=== PATIENT | male | born 1955 | race Caucasian/White ===

== ENCOUNTER 2016-06-20 20:33 | Emergency (ER) | payer BC ==
[~2016-06-20] VITALS: Ht 175.3 cm; Wt 81.6 kg
[~2016-06-20 20:33] MED LIST: ALBU8.5H6; ASPI-482 PO; FAMO10TA5; NEBI5TAB2
[2016-06-20] MEDS ORDERED: CLONIDINE HCL 0.1 MG TABLET PO ONE (21:30)
--- NOTE | 2016-06-20 21:33 | ED.ADGEN ---
Past History Past Medical History: Hypertension Past Surgical History: Cholecystectomy Smoking: Cigarettes, Less than 1pk/day Alcohol Use: None Drug Use: None Adult General HPI HPI Patient is a 61-year-old male presents emergency department complaining of a brief episode of sharp chest pain. Patient denies any cardiac history. This pain occurred about an hour ago. It lasted briefly has since resolved. He does have a history of chest discomfort or fluttering" when his blood pressure is high. Patient reports he has not always compliant with his blood pressure medicine although he reports taking 3 or 4 hours ago this evening. He does continue to smoke. He denies any associated symptoms such as diaphoresis, dyspnea, nausea, vomiting. Review of Systems Review of Systems Constitutional: Denies fever or chills [] Eyes: Denies change in visual acuity, redness, or eye pain [] HENT: Denies nasal congestion or sore throat [] Respiratory: Denies cough or shortness of breath [] Cardiovascular: No additional information not addressed in HPI [] GI: Denies abdominal pain, nausea, vomiting, bloody stools or diarrhea [] : Denies dysuria or hematuria [] Musculoskeletal: Denies back pain or joint pain [] Integument: Denies rash or skin lesions [] Neurologic: Denies headache, focal weakness or sensory changes [] Endocrine: Denies polyuria or polydipsia [] Current Medications Current Medications Current Medications Medications (Trade) Dose Ordered Sig/[facility] Start Time Stop Time Status Last Admin Dose Admin Clonidine HCl (Catapres) 0.2 mg 1X ONCE 06/20/16 21:30 06/20/16 21:31 DC 06/20/16 21:30 0.2 MG Allergies Allergies Allergies Coded Allergies Type Severity Reaction Last Updated Verified No Known Drug Allergies 04/12/13 No Physical Exam Physical Exam Constitutional: Well developed, well nourished, no acute distress, non-toxic appearance. [] HENT: Normocephalic, atraumatic, bilateral external ears normal, oropharynx moist, no oral exudates, nose normal. [] Eyes: PERRLA, EOMI, conjunctiva normal, no discharge. [] Neck: Normal range of motion, no tenderness, supple, no stridor. [] Cardiovascular:Heart rate regular rhythm, no murmur [] Lungs & Thorax: Bilateral breath sounds clear to auscultation [] Abdomen: Bowel sounds normal, soft, no tenderness, no masses, no pulsatile masses. [] Skin: Warm, dry, no erythema, no rash. [] Back: No tenderness, no CVA tenderness. [] Extremities: No tenderness, no cyanosis, no clubbing, ROM intact, no edema. [] Neurologic: Alert and oriented X 3, normal motor function, normal sensory function, no focal deficits noted. [] Psychologic: Affect normal, judgement normal, mood normal. [] Current Patient Data Vital Signs Vital Signs Date Time Temp Pulse Resp B/P Pulse Ox O2 Delivery O2 Flow Rate FiO2 06/20/16 21:30 78 210/102 06/20/16 20:40 98.6 18 97 Room Air Lab Results Laboratory Tests Test 06/20/16 21:39 White Blood Count 11.2x10^3/uL (4.0-11.0) H Red Blood Count 4.58x10^6/uL (4.30-5.70) Hemoglobin 14.2g/dL (13.0-17.5) Hematocrit 41.7% (39.0-53.0) Mean Corpuscular Volume 91fL (79-100) Mean Corpuscular Hemoglobin 31pg (25-35) Mean Corpuscular Hemoglobin Concent 34g/dL (31-37) Red Cell Distribution Width 14.2% (11.5-14.5) Platelet Count 265x10^3/uL (140-400) Neutrophils (%) (Auto) 52% (31-73) Lymphocytes (%) (Auto) 34% (24-48) Monocytes (%) (Auto) 9% (0-9) Eosinophils (%) (Auto) 4% (0-3) H Basophils (%) (Auto) 1% (0-3) Neutrophils # (Auto) 5.9x10^3uL (1.8-7.7) Lymphocytes # (Auto) 3.8x10^3/uL (1.0-4.8) Monocytes # (Auto) 1.0x10^3/uL (0.0-1.1) Eosinophils # (Auto) 0.4x10^3/uL (0.0-0.7) Basophils # (Auto) 0.1x10^3/uL (0.0-0.2) Prothrombin Time 10.3SEC (9.4-11.4) Prothrombin Time INR 1.0 (0.9-1.1) PTT 25SEC (23-33) Magnesium Level 1.8mg/dL (1.8-2.4) EKG EKG EKG interpreted by me, normal sinus rhythm, 60 bpm, no ST segment elevations normal axis. [] Radiology/Procedures Radiology/Procedures Chest x-ray interpreted by me, no acute cardiopulmonary process. [] Course & Med Decision Making Course & Med Decision Making Pertinent Labs and Imaging studies reviewed. (See chart for details) Patient's blood pressure has gone down nicely. His chest discomfort is also subsided. At this point he is ready for discharge home. He will call his doctor in the morning and return emergency Department sooner if he develops any new or worsening symptoms. [] Final Impression Final Impression Chest pain Hypertension [] Problems: Dragon Disclaimer Dragon Disclaimer This electronic medical record was generated, in whole or in part, using a voice recognition dictation system. KADEEM ESTRADA MD Jun 20, 2016 21:33
[2016-06-20 21:49] LABS: BASO # 0.1 x10^3/uL (0.0-0.2); BASO % 1 % (0-3); EOS # 0.4 x10^3/uL (0.0-0.7); EOS % 4 % (0-3); HEMATOCRIT 41.7 % (39.0-53.0); HEMOGLOBIN 14.2 g/dL (13.0-17.5); LYMPH # 3.8 x10^3/uL (1.0-4.8); LYMPH % 34 % (24-48); MEAN CORPUSCULAR HEMOGLOBIN 31 pg (25-35); MEAN CORPUSCULAR HGB CONC 34 g/dL (31-37); MEAN CORPUSCULAR VOLUME 91 fL (79-100); MONO % 9 % (0-9); NEUT # 5.9 x10^3uL (1.8-7.7); NEUT % 52 % (31-73); PLATELET COUNT 265 x10^3/uL (140-400); RED BLOOD COUNT 4.58 x10^6/uL (4.30-5.70); RED CELL DISTRIBUTION WIDTH 14.2 % (11.5-14.5); WHITE BLOOD COUNT 11.2 x10^3/uL (4.0-11.0)
[2016-06-20 22:31] VITALS: BP 174/94
[2016-06-20 22:54] LABS: HEMOGLOBIN ISTAT 16.3 gm/dL; POTASSIUM ISTAT 3.3 mmol/L (3.5-5.0)
--- NOTE | 2016-06-20 23:06 | EKG ---
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
--- NOTE | 2016-06-21 08:27 | RAD ---
Portable chest, 06/20/2016: History: Chest pain Comparison is made to a study from 08/06/2015. The heart size and pulmonary vascularity are normal. There is minimal linear atelectasis in the left base. The lungs are otherwise clear. There is no evidence of pleural fluid. IMPRESSION: Minimal left basilar atelectasis.
== END 2016-06-20 22:34 | disposition home or self-care (01) ==
LOC: ER 20:36
DX: R07.9 Chest pain, unspecified (principal); I10 Essential (primary) hypertension; F17.210 Nicotine dependence, cigarettes, uncomplicated
CPT/HCPCS: 36415; 71010; 80047; 83735; 84484; 85027; 85610; 85730; 93005; 99285-25

== ENCOUNTER → 2016-09-27 | Outpatient (CLI) | payer BC ==
--- NOTE | 2016-09-27 11:05 | RAD ---
Indication: Pain between the scapula. Time of exam 10:57 AM AP and lateral views of the thoracic spine were obtained. The vertebral body heights are maintained. No acute compression fracture is detected. The pedicles and paraspinous line are intact. Impression: No acute bony abnormality is detected.
== END | disposition home or self-care (01) ==
LOC: DXRADRC 10:41
PROVIDERS: ATTEND Physician Assistant
DX: M54.6 Pain in thoracic spine (principal)
CPT/HCPCS: 72072

== ENCOUNTER 2016-11-26 12:14 | Emergency (ER) | payer BC ==
[~2016-11-26] VITALS: Ht 175.3 cm; Wt 81.6 kg
[2016-11-26] MEDS ORDERED: fentaNYL PF 100 MCG/2 ML VIAL IV PRN (12:30)
[2016-11-26] MEDS ORDERED: NITROGLYCERIN PREMIX 250 ML IV ONE (12:30)
[2016-11-26 12:50] LABS: BASO # 0.1 x10^3/uL (0.0-0.2); BASO % 1 % (0-3); EOS # 0.4 x10^3/uL (0.0-0.7); EOS % 4 % (0-3); HEMATOCRIT 42.7 % (39.0-53.0); HEMOGLOBIN 14.7 g/dL (13.0-17.5); LYMPH % 32 % (24-48); MEAN CORPUSCULAR HEMOGLOBIN 32 pg (25-35); MEAN CORPUSCULAR HGB CONC 34 g/dL (31-37); MEAN CORPUSCULAR VOLUME 93 fL (79-100); MONO % 11 % (0-9); NEUT % 52 % (31-73); PLATELET COUNT 277 x10^3/uL (140-400); RED BLOOD COUNT 4.59 x10^6/uL (4.30-5.70); RED CELL DISTRIBUTION WIDTH 13.6 % (11.5-14.5); WHITE BLOOD COUNT 9.6 x10^3/uL (4.0-11.0)
[2016-11-26 12:50] LABS: HEMOGLOBIN ISTAT 13.9 gm/dL; POTASSIUM ISTAT 4.4 mmol/L (3.5-5.0)
[2016-11-26 13:14] LABS: ALBUMIN 3.7 g/dL (3.4-5.0); TOTAL BILIRUBIN 0.5 mg/dL (0.2-1.0); TOTAL PROTEIN 7.2 g/dL (6.4-8.2)
[2016-11-26] MEDS ORDERED: NITROGLYCERIN SUBLINGUAL 0.4 MG BOTTLE OF 25. SL ONE (13:15)
[2016-11-26] MEDS ORDERED: ASPIRIN 81 MG TAB.CHEW PO ONE (13:15)
[2016-11-26 13:23] LABS: DIRECT BILIRUBIN 0.1 mg/dL (0.0-0.2)
[2016-11-26] MEDS: MORPHINE SULFATE 4 MG/ML DISP.SYRIN. IV/SQ PRN ×2 (13:27→14:47)
[2016-11-26 14:00] VITALS: BP 143/60
--- NOTE | 2016-11-26 14:08 | ED.ADGEN ---
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 Patient describes it as a burning sensation in the center of his chest with radiation to the arm, he denies any similar symptoms previously. He denies any shortness of breath, any nausea or vomiting, any belching, any lightheadedness or dizziness, any focal weakness, numbness, tingling. He states that he has chronic back pain which is unchanged at this time. He denies any recent travel or sick contacts, any fevers or chills, any swelling of the extremities, any history of DVT or PE. He states he has been compliant with his blood pressure medications, which were changed about 2 months ago. He does not take any blood thinners or aspirin on a daily basis. He has not taken anything for pain prior to coming to the ED. He currently states his pain is an 8 out of 10. Review of Systems Review of Systems Constitutional: Denies fever or chills [] Eyes: Denies change in visual acuity, redness, or eye pain [] HENT: Denies nasal congestion or sore throat [] Respiratory: Denies cough or shortness of breath [] Cardiovascular: Chest pain radiating into the left arm. GI: Denies abdominal pain, nausea, vomiting, bloody stools or diarrhea [] : Denies dysuria or hematuria [] Musculoskeletal: Denies back pain or joint pain [] Integument: Denies rash or skin lesions [] Neurologic: Denies headache, focal weakness or sensory changes [] Endocrine: Denies polyuria or polydipsia [] Current Medications Current Medications Current Medications Medications (Trade) Dose Ordered Sig/Mary Start Time Stop Time Status Last Admin Dose Admin Aspirin (Children'S Aspirin) 324 mg 1X ONCE 11/26/16 13:15 11/26/16 13:17 DC 11/26/16 12:57 324 MG Fentanyl Citrate (Fentanyl 2ml Vial) 25 mcg PRN Q15MIN PRN 11/26/16 12:30 11/27/16 12:29 Heparin Sodium (Porcine) 1,000 unit PRN Q6HRS PRN 11/26/16 15:00 Heparin Sodium/ Dextrose 500 ml @ 0 mls/hr CONT PRN 11/26/16 15:00 11/26/16 16:09 19.6 MLS/HR Morphine Sulfate (Morphine 4mg Syringe) 4 mg PRN Q15MIN PRN 11/26/16 13:40 11/27/16 13:39 11/26/16 14:47 4 MG Nitroglycerin (Nitrostat) 0.4 mg 1X ONCE 11/26/16 13:15 11/26/16 13:17 DC 11/26/16 12:51 0.4 MG Nitroglycerin/ Dextrose 250 ml @ 3 mls/hr 1X ONCE 11/26/16 12:30 11/26/16 12:49 DC Allergies Allergies Allergies Coded Allergies Type Severity Reaction Last Updated Verified No Known Drug Allergies 04/12/13 No Physical Exam Physical Exam Constitutional: Well developed, well nourished, no acute distress, non-toxic appearance. [] HENT: Normocephalic, atraumatic, bilateral external ears normal, oropharynx moist, no oral exudates, nose normal. [] Eyes: PERRLA, EOMI, conjunctiva normal, no discharge. [] Neck: Normal range of motion, no tenderness, supple, no stridor. [] Cardiovascular:Heart rate regular rhythm, no murmur, S1, S2, rubs or gallops. [] Lungs & Thorax: Bilateral breath sounds clear to auscultation, no wheezing, rhonchi, rales. No chest or crepitus or tenderness, unable to reproduce symptoms with palpation. [] Abdomen: Bowel sounds normal, soft, no tenderness, no rebound, rigidity, no guarding, no masses, no pulsatile masses. [] Skin: Warm, dry, no erythema, no rash. [] Back: No tenderness, no CVA tenderness. [] Extremities: No tenderness, no cyanosis, no clubbing, ROM intact, no edema. Negative Homans sign. [] Neurologic: Alert and oriented X 3, normal motor function, normal sensory function, no focal deficits noted. [] Psychologic: Affect normal, judgement normal, mood normal. [] Current Patient Data Vital Signs Vital Signs Date Time Temp Pulse Resp B/P (MAP) Pulse Ox O2 Delivery O2 Flow Rate FiO2 11/26/16 16:15 16 98 11/26/16 14:00 61 143/60 (87) Room Air 11/26/16 12:19 97.9 Lab Results Laboratory Tests Test 11/26/16 12:28 11/26/16 12:30 11/26/16 12:45 11/26/16 13:13 POC Troponin I 0.13 ng/ml (<0.08) White Blood Count 9.6 x10^3/uL (4.0-11.0) Red Blood Count 4.59 x10^6/uL (4.30-5.70) Hemoglobin 14.7 g/dL (13.0-17.5) Hematocrit 42.7 % (39.0-53.0) Mean Corpuscular Volume 93 fL (79-100) Mean Corpuscular Hemoglobin 32 pg (25-35) Mean Corpuscular Hemoglobin Concent 34 g/dL (31-37) Red Cell Distribution Width 13.6 % (11.5-14.5) Platelet Count 277 x10^3/uL (140-400) Neutrophils (%) (Auto) 52 % (31-73) Lymphocytes (%) (Auto) 32 % (24-48) Monocytes (%) (Auto) 11 % (0-9) H Eosinophils (%) (Auto) 4 % (0-3) H Basophils (%) (Auto) 1 % (0-3) Neutrophils # (Auto) 5.0 x10^3uL (1.8-7.7) Lymphocytes # (Auto) 3.0 x10^3/uL (1.0-4.8) Monocytes # (Auto) 1.0 x10^3/uL (0.0-1.1) Eosinophils # (Auto) 0.4 x10^3/uL (0.0-0.7) Basophils # (Auto) 0.1 x10^3/uL (0.0-0.2) Total Bilirubin 0.5 mg/dL (0.2-1.0) Direct Bilirubin 0.1 mg/dL (0.0-0.2) Aspartate Amino Transferase (AST) 29 U/L (15-37) Alanine Aminotransferase (ALT) 37 U/L (16-63) Alkaline Phosphatase 60 U/L (46-116) OU-Qcr-R-Type Natriuretic Peptide 116 pg/mL (0-124) Total Protein 7.2 g/dL (6.4-8.2) Albumin 3.7 g/dL (3.4-5.0) Lipase 212 U/L (73-393) POC Hemoglobin 13.9 gm/dL POC Hematocrit 41 % POC Sodium 140 mmol/L (135-145) POC Potassium 4.4 mmol/L (3.5-5.0) POC Chloride 104 mmol/L (98-110) POC Total CO2 27 mmol/L (23-32) Anion Gap 14 mmol/L (6-14) POC Blood Urea Nitrogen 19 mg/dL (8-26) POC Creatinine 1.0 mg/dL (0.5-1.4) Glucose Level 150 mg/dL (60-99) H POC Ionized Calcium (Graeme) 1.06 mmol/L (1.13-1.32) L Prothrombin Time 9.9 SEC (9.4-11.4) Prothrombin Time INR 1.0 (0.9-1.1) PTT 22 SEC (23-33) L Test 11/26/16 14:16 11/26/16 14:20 Troponin I Quantitative 0.265 ng/mL (0-0.055) H Urine Collection Type Unknown Urine Color Yellow Urine Clarity Clear Urine pH 6.0 Urine Specific [place] 1.025 Urine Protein Neg (NEG-TRACE) Urine Glucose (UA) Neg mg/dL (NEG) Urine Ketones (Stick) Neg mg/dL (NEG) Urine Blood Trace (NEG) Urine Nitrite Neg (NEG) Urine Bilirubin Neg (NEG) Urine Urobilinogen Dipstick 1 mg/dL (0.2 mg/dL) Urine Leukocyte Esterase Neg (NEG) Urine RBC 1-2 /HPF (0-2) Urine WBC Occ /HPF (0-4) Urine Squamous Epithelial Cells None /LPF Urine Bacteria 0 /HPF (0-FEW) Urine Mucus Marked /LPF Urine Opiates Screen Pos (NEG) Urine Methadone Screen Neg (NEG) Urine Barbiturates Neg (NEG) Urine Phencyclidine Screen Neg (NEG) Urine Amphetamine/Methamphetamine Neg (NEG) Urine Benzodiazepines Screen Neg (NEG) Urine Cocaine Screen Neg (NEG) Urine Cannabinoids Screen Neg (NEG) Urine Ethyl Alcohol Neg (NEG) EKG EKG EC: Sinus rhythm, heart rate 64 beats/minutes, QTC of 437, CO 142, QRS of 90, upright axis, patient with contour normality is noted in the anterior septal leads, with mild baseline artifact noted, abnormal ECG, does not meet STEMI criteria. As interpreted by me. CT: [] Radiology/Procedures Radiology/Procedures [][address] [address] IMAGING REPORT Signed PATIENT: JENNY BOOTHE ACCOUNT: [id number] : 1955 LOCATION: ER AGE: 61 SEX: M EXAM STATUS: PRE ER ORD. PHYSICIAN: DORIAN NJ DO REASON: CP PROCEDURE: PORTABLE CHEST 1V AP chest radiograph 11/26/2016 Clinical indication: Chest pain. Comparison: Chest radiograph June 30, 2016. Findings: Cardiac and mediastinal silhouettes are within normal limits. No pleural effusion, pneumothorax or focal consolidation. Impression: No acute cardiopulmonary abnormality. DICTATED AND SIGNED BY: RAMSES CHURCH MD DATE: 11/26/16 1444 CC: DORIAN NJ DO; FRANCO SAEZ ~ Course & Med Decision Making Course & Med Decision Making Pertinent Labs and Imaging studies reviewed. (See chart for details) Patient with initial complaint of 8 and his had chest pain for cardiac cause. I- STAT troponin was obtained in the ED, which was positive at 0.13, follows troponin was positive at 0.262. ECG unremarkable, no other concerning laboratory studies identified. Patient received aspirin, nitroglycerin, and morphine in the ED. Pain was fully resolved. ECG showed some contour abnormalities in the anterior septal leads, but did not meet STEMI criteria, repeat ECG obtained when patient was pain-free revealed no changes. I did discuss findings as above with Dr. Bernardo cardiology, who requests the patient be transferred to [facility] for potential catheterization due to these findings and history, request the patient initiated on heparin. I did discuss this with patient, patient has no cardiac medications to heparin, initiated a bolus and drip, is agreeable with plan for transfer to [facility] for admission and cardiology consultation and evaluation. I did speak with Dr. Nam of internal medicine, who accepted the patient to her service as a transfer from [facility]. Written consent was obtained, patient remained stable on the monitor in sinus rhythm, pain well controlled with nitroglycerin and morphine as stated, transfer to EMS for transport to [facility] without issue. Final Impression Final Impression [] Problems: Dragon Disclaimer Dragon Disclaimer This electronic medical record was generated, in whole or in part, using a voice recognition dictation system. Departure: Impression: Primary Impression: Non-ST elevation myocardial infarction (NSTEMI) Disposition: 05 XFER OTHER Condition: IMPROVED DORIAN NJ DO Nov 26, 2016 14:08
[2016-11-26 14:33] LABS: BARBITURATES NEG (NEG); BENZODIAZEPINES NEG (NEG); CANNABINOIDS NEG (NEG); COCAINE NEG (NEG); METHADONE NEG (NEG); OPIATES POS (NEG); PHENCYCLIDINE NEG (NEG)
[2016-11-26 14:34] LABS: AMPHETAMINE/METHAMPHETAMINE NEG (NEG)
--- NOTE | 2016-11-26 14:47 | RAD ---
AP chest radiograph 11/26/2016 Clinical indication: Chest pain. Comparison: Chest radiograph June 30, 2016. Findings: Cardiac and mediastinal silhouettes are within normal limits. No pleural effusion, pneumothorax or focal consolidation. Impression: No acute cardiopulmonary abnormality.
[2016-11-26 14:54] LABS: BILIRUBIN,URINE NEG (NEG); CLARITY,URINE CLEAR; COLOR,URINE YELLOW; GLUCOSE,URINE NEG (NEG); UROBILINOGEN,URINE 1 mg/dL (0.2 mg/dL)
[2016-11-26 14:55] LABS: BACTERIA,URINE 0 /HPF (0-FEW); NITRITE,URINE NEG (NEG); WBC,URINE OCC /HPF (0-4)
[2016-11-26] MEDS ORDERED: HEPARIN 25,000UTS/500ML PREMIX 500 ML IV PRN (15:00)
[2016-11-26] MEDS ORDERED: HEPARIN for IV BOLUS 10,000 UNIT/10 ML VIAL. IV PRN ×2 (15:00)
[2016-11-26] MEDS ORDERED: HEPARIN for IV BOLUS 10,000 UNIT/10 ML VIAL. IV ONE (15:30)
== END 2016-11-26 17:45 | disposition short-term general hospital (02) ==
LOC: ER 12:14
DX: I21.4 Non-ST elevation (NSTEMI) myocardial infarction (principal); I10 Essential (primary) hypertension; F17.210 Nicotine dependence, cigarettes, uncomplicated
CPT/HCPCS: 36415; 71010; 80047; 80076; 80307; 81001; 83690; 83880; 84484; 85025; 85610; 85730; 96365; 96375; 96376; 99285; J1644; J2270; G0479

== ENCOUNTER → 2017-03-05 | Outpatient (CLI) | payer BC ==
--- NOTE | 2017-03-05 13:03 | RAD ---
Examination: 2 views of the lumbar spine History: History of pain in the lower back Comparison: None available Findings: The vertebral body heights are maintained. The facets are well aligned. Mild facet hypertrophic changes are identified. No significant listhesis. Mild degenerative changes identified in the lumbar spine with mild intervertebral disc height loss identified at L4-L5, L5-S1 vertebral level. Impression: Mild degenerative changes lumbar spine.
== END | disposition home or self-care (01) ==
LOC: DXRAD 12:14
PROVIDERS: ATTEND Family Medicine
DX: M47.896 Other spondylosis, lumbar region (principal)
CPT/HCPCS: 72100

== ENCOUNTER 2018-04-11 19:48 | Emergency (ER) | payer SELFPAY ==
[~2018-04-11] VITALS: Ht 175.3 cm; Wt 86.2 kg
[2018-04-11 20:43] LABS: BASO # 0.1 x10^3/uL (0.0-0.2); BASO % 1 % (0-3); EOS # 0.4 x10^3/uL (0.0-0.7); EOS % 3 % (0-3); HEMATOCRIT 39.1 % (39.0-53.0); HEMOGLOBIN 13.3 g/dL (13.0-17.5); LYMPH # 2.8 x10^3/uL (1.0-4.8); LYMPH % 22 % (24-48); MEAN CORPUSCULAR HEMOGLOBIN 31 pg (25-35); MEAN CORPUSCULAR HGB CONC 34 g/dL (31-37); MEAN CORPUSCULAR VOLUME 90 fL (79-100); MONO # 1.2 x10^3/uL (0.0-1.1); MONO % 10 % (0-9); NEUT # 8.1 x10^3uL (1.8-7.7); NEUT % 65 % (31-73); PLATELET COUNT 321 x10^3/uL (140-400); RED BLOOD COUNT 4.33 x10^6/uL (4.30-5.70); WHITE BLOOD COUNT 12.5 x10^3/uL (4.0-11.0)
[2018-04-11 20:59] LABS: ALBUMIN/GLOBULIN RATIO 1.2 (1.0-1.7); CALCIUM 9.3 mg/dL (8.5-10.1); CREATININE 1.5 mg/dL (0.7-1.3); GFR 47.6; TOTAL BILIRUBIN 0.4 mg/dL (0.2-1.0); TOTAL PROTEIN 7.3 g/dL (6.4-8.2)
--- NOTE | 2018-04-11 21:11 | PHYS DOC ---
Past History Past Medical History: CAD, High Cholesterol, Hypertension Past Surgical History: Other Smoking: Cigarettes, Less than 1pk/day Additional Smoking Information: 04/03 PPD Alcohol Use: None Drug Use: None Adult General Chief Complaint Chief Complaint: HYPERTENSION HPI HPI 63-year-old male presents with palpitations. The patient was moving some furniture and exerting himself fairly heavily today. He began to have palpitations a couple hours prior to arrival. He describes them as a skipping heart feeling. 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 He checked his rhythm strip and his rate was 108 and it seemed to be somewhat irregular. The patient has had intermittent palpitations in the past. He has a long cardiac history with 5 stents, the last one in 2017. He denies chest pain, shortness of breath, or diaphoresis. His palpitations have resolved on arrival to the ED, but he wanted to make sure there is nothing to worry about. He feels symptom-free at this time. He denies fever or chills. Review of Systems Review of Systems Constitutional: Denies fever or chills [] Eyes: Denies change in visual acuity, redness, or eye pain [] HENT: Denies nasal congestion or sore throat [] Respiratory: Intermittant cough without shortness of breath [] Cardiovascular: No additional information not addressed in HPI [] GI: Denies abdominal pain, nausea, vomiting, bloody stools or diarrhea [] : Denies dysuria or hematuria [] Musculoskeletal: Denies back pain or joint pain [] Integument: Denies rash or skin lesions [] Neurologic: Denies headache, focal weakness or sensory changes [] Endocrine: Denies polyuria or polydipsia [] All other systems were reviewed and found to be within normal limits, except as documented in this note. Allergies Allergies Allergies Coded Allergies Type Severity Reaction Last Updated Verified No Known Drug Allergies 04/12/13 No Physical Exam Physical Exam Constitutional: Well developed, well nourished, no acute distress, non-toxic appearance. [] HENT: Normocephalic, atraumatic, bilateral external ears normal, oropharynx moist, no oral exudates, nose normal. [] Eyes: PERRLA, EOMI, conjunctiva normal, no discharge. [] Neck: Normal range of motion, no tenderness, supple, no stridor. [] Cardiovascular:Heart rate regular rhythm, no murmur [] Lungs & Thorax: Bilateral breath sounds and end expiratory wheezing [] Abdomen: Bowel sounds normal, soft, no tenderness, no masses, no pulsatile masses. [] Skin: Warm, dry, no erythema, no rash. [] Back: No tenderness, no CVA tenderness. [] Extremities: No tenderness, no cyanosis, no clubbing, ROM intact, no edema. [] Neurologic: Alert and oriented X 3, normal motor function, normal sensory function, no focal deficits noted. [] Psychologic: Affect normal, judgement normal, mood normal. [] Current Patient Data Vital Signs Vital Signs Date Time Temp Pulse Resp B/P (MAP) Pulse Ox O2 Delivery O2 Flow Rate FiO2 04/11/18 20:02 98.2 96 20 96 Room Air Lab Results Laboratory Tests Test 04/11/18 20:12 04/11/18 20:17 White Blood Count 12.5 x10^3/uL (4.0-11.0) H Red Blood Count 4.33 x10^6/uL (4.30-5.70) Hemoglobin 13.3 g/dL (13.0-17.5) Hematocrit 39.1 % (39.0-53.0) Mean Corpuscular Volume 90 fL (79-100) Mean Corpuscular Hemoglobin 31 pg (25-35) Mean Corpuscular Hemoglobin Concent 34 g/dL (31-37) Red Cell Distribution Width 14.0 % (11.5-14.5) Platelet Count 321 x10^3/uL (140-400) Neutrophils (%) (Auto) 65 % (31-73) Lymphocytes (%) (Auto) 22 % (24-48) L Monocytes (%) (Auto) 10 % (0-9) H Eosinophils (%) (Auto) 3 % (0-3) Basophils (%) (Auto) 1 % (0-3) Neutrophils # (Auto) 8.1 x10^3uL (1.8-7.7) H Lymphocytes # (Auto) 2.8 x10^3/uL (1.0-4.8) Monocytes # (Auto) 1.2 x10^3/uL (0.0-1.1) H Eosinophils # (Auto) 0.4 x10^3/uL (0.0-0.7) Basophils # (Auto) 0.1 x10^3/uL (0.0-0.2) Sodium Level 141 mmol/L (136-145) Potassium Level 3.0 mmol/L (3.5-5.1) L Chloride Level 102 mmol/L (98-107) Carbon Dioxide Level 28 mmol/L (21-32) Anion Gap 11 (6-14) Blood Urea Nitrogen 26 mg/dL (8-26) Creatinine 1.5 mg/dL (0.7-1.3) H Estimated GFR (Cockcroft-Gault) 47.6 BUN/Creatinine Ratio 17 (6-20) Glucose Level 167 mg/dL (70-99) H Calcium Level 9.3 mg/dL (8.5-10.1) Total Bilirubin 0.4 mg/dL (0.2-1.0) Aspartate Amino Transferase (AST) 25 U/L (15-37) Alanine Aminotransferase (ALT) 40 U/L (16-63) Alkaline Phosphatase 59 U/L (46-116) Troponin I Quantitative < 0.017 ng/mL (0-0.055) Total Protein 7.3 g/dL (6.4-8.2) Albumin 4.0 g/dL (3.4-5.0) Albumin/Globulin Ratio 1.2 (1.0-1.7) EKG EKG Sinus rhythm, rate 99, normal axis, PACs, no ST elevations or depressions[] Radiology/Procedures Radiology/Procedures [] Impressions: Examination: PORTABLE CHEST 1V History: Chest pain. Hx hypertension Comparison/Correlation: 11/26/2016 portable chest x-ray exam Findings: Portable frontal view chest was obtained. Heart size and pulmonary vasculature are normal. No infiltrate or effusion. Bony structures are unremarkable. No pneumothorax. Impression: No active disease. Electronically signed by: Tamara Alvarez MD (04/11/2018 9:34 PM) [facility] DICTATED AND SIGNED BY: TAMARA ALVAREZ MD DATE: 04/11/182132 CC: PATRIC AGUILLON DO; FRANCO SAEZ Course & Med Decision Making Course & Med Decision Making Pertinent Labs and Imaging studies reviewed. (See chart for details) The patient's labs are significant for creatinine 1.5. His previous shows 1.3. Troponin is negative. The rest of his labs are essentially unremarkable. His chest x-ray is unremarkable. His EKG is unremarkable. Patient is feeling better at this time. I do not see any reason for admission. He is stable for discharge at this time. [] Dragon Disclaimer Dragon Disclaimer This electronic medical record was generated, in whole or in part, using a voice recognition dictation system. Departure Departure: Impression: Primary Impression: Palpitations Disposition: 01 HOME, SELF-CARE Condition: STABLE Referrals: FRANCO SAEZ (PCP) Patient Instructions: Palpitations, [id number] PATRIC AGUILLON DO Apr 11, 2018 21:11
[2018-04-11 21:21] LABS: BACTERIA,URINE FEW /HPF (0-FEW); BILIRUBIN,URINE NEG (NEG); CLARITY,URINE CLEAR; COLOR,URINE YELLOW; GLUCOSE,URINE NEG (NEG); NITRITE,URINE NEG (NEG); RBC,URINE RARE /HPF (0-2); SQUAMOUS EPITHELIAL CELL,UR OCC /LPF; UROBILINOGEN,URINE 0.2 mg/dL (0.2 mg/dL); WBC,URINE OCC /HPF (0-4)
[2018-04-11 21:22] LABS: AMORPHOUS SEDIMENT,UR PRESENT /HPF
--- NOTE | 2018-04-11 21:38 | RAD ---
Examination: PORTABLE CHEST 1V History: Chest pain. Hx hypertension Comparison/Correlation: 11/26/2016 portable chest x-ray exam Findings: Portable frontal view chest was obtained. Heart size and pulmonary vasculature are normal. No infiltrate or effusion. Bony structures are unremarkable. No pneumothorax. Impression: No active disease. Electronically signed by: Carlos Noe MD (04/11/2018 9:34 PM) [facility]
[2018-04-11 22:03] VITALS: BP 154/85
--- NOTE | 2018-04-13 16:00 | EKG ---
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
== END 2018-04-11 22:14 | disposition home or self-care (01) ==
LOC: ER 19:48
DX: R00.2 Palpitations (principal); I25.10 Atherosclerotic heart disease of native coronary artery without angina pectoris; E78.00 Pure hypercholesterolemia, unspecified; I10 Essential (primary) hypertension; F17.210 Nicotine dependence, cigarettes, uncomplicated
CPT/HCPCS: 36415; 71045; 80053; 81001; 84484; 85025; 93005; 99284

== ENCOUNTER 2018-09-01 12:33 | Emergency (ER) | payer SELFPAY ==
[~2018-09-01] VITALS: Ht 175.3 cm; Wt 86.2 kg
[~2018-09-01 12:33] MED LIST changes: +FAMO10TA; -FAMO10TA5
--- NOTE | 2018-09-01 12:54 | PHYS DOC ---
Past History Past Medical History: CAD, High Cholesterol, Hypertension Past Surgical History: Other Additional Past Surgical Histo: cardiac stent Smoking: Cigarettes, Less than 1pk/day Alcohol Use: None Drug Use: None Adult General Chief Complaint Chief Complaint: HYPERTENSION HPI HPI Patient is a 63-year-old male presents complaining of high blood pressure. He noticed this last night. He has noticed some pressure in his neck that he normally gets when his blood pressure is elevated. He denies any chest pain. Notes these had some palpitations. No worsening of the discomfort in the neck with exertion. He does have previous coronary disease stools high blood pressur e. No dyspnea on exertion. No worsening of symptoms with exertion. No recent changes in his medication.[] Review of Systems Review of Systems Constitutional: Denies fever or chills [] Eyes: Denies change in visual acuity, redness, or eye pain [] HENT: Denies nasal congestion or sore throat [] Respiratory: Denies cough or shortness of breath [] Cardiovascular: No additional information not addressed in HPI [] GI: Denies abdominal pain, nausea, vomiting, bloody stools or diarrhea [] : Denies dysuria or hematuria [] Musculoskeletal: Denies back pain or joint pain [] Integument: Denies rash or skin lesions [] Neurologic: Denies headache, focal weakness or sensory changes [] Endocrine: Denies polyuria or polydipsia [] All other systems were reviewed and found to be within normal limits, except as documented in this note. Allergies Allergies Allergies Coded Allergies Type Severity Reaction Last Updated Verified No Known Drug Allergies 04/12/13 No Physical Exam Physical Exam Constitutional: Well developed, well nourished, no acute distress, non-toxic appearance. [] HENT: Normocephalic, atraumatic, bilateral external ears normal, oropharynx moist, no oral exudates, nose normal. [] Eyes: PERRLA, EOMI, conjunctiva normal, no discharge. [] Neck: Normal range of motion, no tenderness, supple, no stridor. [] Cardiovascular:Heart rate regular rhythm, no murmur [] Lungs & Thorax: Bilateral breath sounds clear to auscultation [] Abdomen: Bowel sounds normal, soft, no tenderness, no masses, no pulsatile masses. [] Skin: Warm, dry, no erythema, no rash. [] Back: No tenderness, no CVA tenderness. [] Extremities: No tenderness, no cyanosis, no clubbing, ROM intact, no edema. [] Neurologic: Alert and oriented X 3, normal motor function, normal sensory function, no focal deficits noted. [] Psychologic: Affect normal, judgement normal, mood normal. [] EKG EKG EKG shows a sinus rhythm at 70 bpm, normal axis, normal QTC, no ST elevation. Interpreted by me at 1303[] Radiology/Procedures Radiology/Procedures PROCEDURE: PORTABLE CHEST 1V EXAM: CHEST 1 VIEW History: High blood pressure COMPARISON: 04/11/2018 TECHNIQUE: Single portable radiograph of the chest FINDINGS: The cardiac silhouette is unremarkable. The lungs are clear bilaterally. The costophrenic sulci are clear and well demarcated. IMPRESSION: No radiographic evidence of an acute cardiopulmonary process. [] Course & Med Decision Making Course & Med Decision Making Pertinent Labs and Imaging studies reviewed. (See chart for details) ED course: Patient arrived, was placed in bed, and tolerated exam well. He was placed on the monitor and observed. His blood pressure improved to 131/71 prior to discharge without any medications being administered for blood pressure control. Discussed findings and plan with the patient who voiced understanding. All questions were answered. He was discharged in improved condition. Cold decision making: Patient appears to have hypertension, it appears to be reasonably well controlled. There is no evidence of end organ dysfunction. No evidence of this being an acute coronary syndrome.[] Dragon Disclaimer Dragon Disclaimer This electronic medical record was generated, in whole or in part, using a voice recognition dictation system. Departure Departure: Impression: Primary Impression: Hypertension Disposition: 01 HOME, SELF-CARE Condition: IMPROVED Referrals: FRANCO SAEZ (PCP) Follow-up in 2 days Patient Instructions: DASH Diet, Hypertension Additional Instructions: Follow-up with your regular doctor in 2 days. Stop smoking! Followed the DASH diet recommendations. Return to the ER if you develop chest pain, difficulty breathing, or any other concerns. Problem Qualifiers Primary Impression: Hypertension Hypertension type: unspecified Qualified Codes: I10 - Essential (primary) hypertension BARRYVA GARCIAISABELLA PEREZ Sep 01, 2018 12:54
[2018-09-01] MEDS ORDERED: ASPIRIN 81 MG TAB.CHEW PO ONE (13:00)
[2018-09-01 13:14] LABS: BASO # 0.1 x10^3/uL (0.0-0.2); BASO % 1 % (0-3); EOS # 0.3 x10^3/uL (0.0-0.7); EOS % 3 % (0-3); HEMATOCRIT 41.5 % (39.0-53.0); HEMOGLOBIN 14.2 g/dL (13.0-17.5); LYMPH % 23 % (24-48); MEAN CORPUSCULAR HEMOGLOBIN 31 pg (25-35); MEAN CORPUSCULAR HGB CONC 34 g/dL (31-37); MEAN CORPUSCULAR VOLUME 90 fL (79-100); MONO # 0.8 x10^3/uL (0.0-1.1); MONO % 9 % (0-9); NEUT # 5.7 x10^3uL (1.8-7.7); NEUT % 64 % (31-73); PLATELET COUNT 307 x10^3/uL (140-400); RED CELL DISTRIBUTION WIDTH 13.9 % (11.5-14.5); WHITE BLOOD COUNT 8.9 x10^3/uL (4.0-11.0)
--- NOTE | 2018-09-01 13:15 | RAD ---
EXAM: CHEST 1 VIEW History: High blood pressure COMPARISON: 04/11/2018 TECHNIQUE: Single portable radiograph of the chest FINDINGS: The cardiac silhouette is unremarkable. The lungs are clear bilaterally. The costophrenic sulci are clear and well demarcated. IMPRESSION: No radiographic evidence of an acute cardiopulmonary process.
[2018-09-01 13:38] LABS: ALBUMIN 3.8 g/dL (3.4-5.0); ALBUMIN/GLOBULIN RATIO 1.1 (1.0-1.7); CALCIUM 9.3 mg/dL (8.5-10.1); CREATININE 1.2 mg/dL (0.7-1.3); GFR 61.6; MAGNESIUM 1.9 mg/dL (1.8-2.4); POTASSIUM 3.8 mmol/L (3.5-5.1); TOTAL BILIRUBIN 0.5 mg/dL (0.2-1.0); TOTAL PROTEIN 7.3 g/dL (6.4-8.2)
[2018-09-01 13:54] LABS: BACTERIA,URINE 0 /HPF (0-FEW); BILIRUBIN,URINE NEG (NEG); CLARITY,URINE HAZY; COLOR,URINE YELLOW; GLUCOSE,URINE 250 mg/dL (NEG); NITRITE,URINE NEG (NEG); RBC,URINE RARE /HPF (0-2); SQUAMOUS EPITHELIAL CELL,UR OCC /LPF; UROBILINOGEN,URINE 0.2 mg/dL (0.2 mg/dL); WBC,URINE RARE /HPF (0-4)
[2018-09-01 14:37] VITALS: BP 148/87
--- NOTE | 2018-09-02 11:16 | EKG ---
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
== END 2018-09-01 14:42 | disposition home or self-care (01) ==
LOC: ER 12:33
DX: I10 Essential (primary) hypertension (principal); I25.10 Atherosclerotic heart disease of native coronary artery without angina pectoris; E78.00 Pure hypercholesterolemia, unspecified; F17.210 Nicotine dependence, cigarettes, uncomplicated; Z95.818 Presence of other cardiac implants and grafts
CPT/HCPCS: 36415; 71045; 80053; 81001; 83735; 83880; 84484; 85025; 85610; 93005; 99285

== ENCOUNTER → 2019-07-01 | Outpatient (CLI) | payer BC ==
[~2019-07-01] MED LIST changes: -FAMO10TA; +FAMO10TA5
--- NOTE | 2019-07-01 09:25 | RAD ---
Thoracic spine 3 views. HISTORY: Mid to low back pain, recent injury 3 views were taken of the thoracic spine. Comparison is made with a study from August 2016. There is no acute fracture. There are coronary stents. An acute compression fracture is not identified. There are minimal hypertrophic changes. There is spurring and mild degenerative disc disease at C5-6 and in the cervical spine on the swimmers view. Cervical thoracic junction is in normal alignment on the swimmers view. IMPRESSION: 1. No acute fracture noted in the thoracic spine. Electronically signed by: Terry Flores MD (07/01/2019 9:23 AM) [id number]
== END | disposition home or self-care (01) ==
LOC: PMG 08:55
PROVIDERS: ATTEND Physician Assistant
DX: M50.322 Other cervical disc degeneration at C5-C6 level (principal); S29.9XXA Unspecified injury of thorax, initial encounter; X58.XXXA Exposure to other specified factors, initial encounter; Y93.89 Activity, other specified; Y92.89 Other specified places as the place of occurrence of the external cause; Y99.8 Other external cause status
CPT/HCPCS: 72072

== ENCOUNTER 2020-10-30 18:23 | Emergency (ER) | payer BC ==
[~2020-10-30] VITALS: Ht 175.3 cm; Wt 83.0 kg
--- NOTE | 2020-10-30 18:48 | PHYS DOC ---
Past History Past Medical History: CAD, High Cholesterol, Hypertension Past Surgical History: Cholecystectomy, Other Additional Past Surgical Histo: cardiac stent Smoking: Cigarettes, Less than 1pk/day Alcohol Use: None Drug Use: None General Adult EDM: Chief Complaint: Palpitations HPI: HPI: 65-year-old male presents with palpitations. The patient started having palpitations about an hour ago. 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 He noticed that he had some unusual looking beats. Patient is not exactly sure of his diagnosis of some kind arrhythmia. He is on metoprolol twice a day. He is due for his dose in about 45 minutes. He has been taking his medications as prescribed. He denies chest pain or shortness of breath. He has noticed he might be wheezing a bit. He uses breathing treatments every day but has not taken them for the last couple days. Review of Systems: Review of Systems: Constitutional: Denies fever or chills Eyes: Denies change in visual acuity HENT: Denies nasal congestion or sore throat Respiratory: Mild wheezing. Denies cough or shortness of breath Cardiovascular: Palpitations GI: Denies abdominal pain, nausea, vomiting, bloody stools or diarrhea : Denies dysuria Musculoskeletal: Denies back pain or joint pain Integument: Denies rash Neurologic: Denies headache, focal weakness or sensory changes Endocrine: Denies polyuria or polydipsia Lymphatic: Denies swollen glands Psychiatric: Denies depression or anxiety Allergies: Allergies: Allergies Coded Allergies Type Severity Reaction Last Updated Verified No Known Drug Allergies 04/12/13 No Physical Exam: PE: Constitutional: Well developed, well nourished, no acute distress, non-toxic appearance. [] HENT: Normocephalic, atraumatic, bilateral external ears normal, oropharynx moist, no oral exudates, nose normal. [] Eyes: PERRLA, EOMI, conjunctiva normal, no discharge. [] Neck: Normal range of motion, no tenderness, supple, no stridor. [] Cardiovascular: Heart rate 69, irregular rhythm, no murmur [] Lungs & Thorax: Bilateral breath sounds with mild end expiratory wheezing at the base [] Abdomen: Bowel sounds normal, soft, no tenderness, no masses, no pulsatile masses. [] Skin: Warm, dry, no erythema, no rash. [] Back: No tenderness, no CVA tenderness. [] Extremities: No tenderness, no cyanosis, no clubbing, ROM intact, no edema. [] Neurologic: Alert and oriented X 3, normal motor function, normal sensory function, no focal deficits noted. [] Psychologic: Affect normal, judgement normal, mood normal. [] EKG: EKG: Sinus rhythm with ectopic beats, rate 69, normal axis, no ST elevation or dep ression. [] Radiology/Procedures: Radiology/Procedures: [] Impressions: XR CHEST 1V CLINICAL INDICATIONS: Reason: palpitations comparison: September 01, 2018 Findings: No acute lung infiltrate or pleural effusion or pulmonary edema or lung mass or pneumothorax is seen. The heart size, pulmonary vasculature, mediastinum and both vamshi are unremarkable. IMPRESSION: No acute radiographic abnormality is seen. Electronically signed by: Caleb Samuel MD (10/30/2020 7:59 PM) [id number] DICTATED AND SIGNED BY: CALEB SAMUEL MD DATE: 10/30/201957 CC: PATRIC AGUILLON DO; FRANCO SAEZ IN ~MTH0 0 Heart Score: C/O Chest Pain: No HEART Score for Chest Pain: HEART Score for Chest Pain Response (Comments) Value History Slighlty/Non-Suspicious 0 ECG Nonspecific Repolarizatio 1 Age >45 - < 65 1 Risk Factors 1 or 2 Risk Factors 1 Troponin < Normal Limit 0 Total 3 Risk Factors: Risk Factors: DM, Current or recent (<one month) smoker, HTN, HLP, family history of CAD, obesity. Risk Scores: Score 0 - 3: 2.5% MACE over next 6 weeks - Discharge Home Score 4 - 6: 20.3% MACE over next 6 weeks - Admit for Clinical Observation Score 7 - 10: 72.7% MACE over next 6 weeks - Early Invasive Strategies Course & Med Decision Making: Course & Med Decision Making Pertinent Labs and Imaging studies reviewed. (See chart for details) The patient's EKG is mostly sinus with occasional ectopic beats. I suspect his metoprolol may be running out as his dose is about due. This may be brief breakthroughs of his A. fib. His labs are unremarkable. His troponin is negative. I will give him 100 mg of metoprolol which is his normal night dose. The patient's rate is 70. He is having what appears to be bigeminy. The rest of his work-up is unremarkable. I do not believe the patient needs to be admitted. He will follow up with his primary care physician. If his condition worsens he will come back to the emergency room. He is stable for discharge at this time. [] Celestinaon Disclaimer: Dragon Disclaimer: This electronic medical record was generated, in whole or in part, using a voice recognition dictation system. Departure Departure: Impression: Primary Impression: Palpitations Disposition: HOME / SELF CARE / HOMELESS Condition: STABLE Referrals: FRANCO SAEZ (PCP) PATRIC AGUILLON DO Oct 30, 2020 18:48
[2020-10-30] MEDS ORDERED: IPRATRPIUM/ALBUTEROL 0.5/2.5MG 3 ML NEBU. NEB ONE (19:00)
[2020-10-30 19:07] LABS: CALCIUM 9.3 mg/dL (8.5-10.1); GFR 75.5; POTASSIUM 4.1 mmol/L (3.5-5.1)
[2020-10-30 19:08] LABS: BASO # 0.1 x10^3/uL (0.0-0.2); BASO % 1 % (0-3); EOS # 0.3 x10^3/uL (0.0-0.7); EOS % 3 % (0-3); HEMATOCRIT 42.5 % (39.0-53.0); HEMOGLOBIN 14.6 g/dL (13.0-17.5); LYMPH # 3.1 x10^3/uL (1.0-4.8); LYMPH % 29 % (24-48); MEAN CORPUSCULAR HEMOGLOBIN 32 pg (25-35); MEAN CORPUSCULAR HGB CONC 34 g/dL (31-37); MEAN CORPUSCULAR VOLUME 93 fL (79-100); MONO # 1.2 x10^3/uL (0.0-1.1); MONO % 11 % (0-9); NEUT # 5.8 x10^3uL (1.8-7.7); NEUT % 55 % (31-73); PLATELET COUNT 304 x10^3/uL (140-400); RED BLOOD COUNT 4.59 x10^6/uL (4.30-5.70); RED CELL DISTRIBUTION WIDTH 13.8 % (11.5-14.5); WHITE BLOOD COUNT 10.5 x10^3/uL (4.0-11.0)
[2020-10-30 19:13] LABS: ALBUMIN/GLOBULIN RATIO 1.2 (1.0-1.7); TOTAL BILIRUBIN 0.5 mg/dL (0.2-1.0); TOTAL PROTEIN 7.4 g/dL (6.4-8.2)
[2020-10-30] MEDS ORDERED: METOPROLOL TART IMMED RELEASE 50 MG TABLET PO ONE (19:30)
[2020-10-30] MEDS ORDERED: METOPROLOL TART IMMED RELEASE 25 MG TABLET. ONE ×2 (19:54)
[2020-10-30 20:00] VITALS: BP 140/90
[2020-10-30] MEDS ORDERED: METOPROLOL TART IMMED RELEASE 25 MG TABLET. PO ONE ×2 (20:00)
--- NOTE | 2020-10-30 20:01 | RAD ---
XR CHEST 1V CLINICAL INDICATIONS: Reason: palpitations comparison: September 01, 2018 Findings: No acute lung infiltrate or pleural effusion or pulmonary edema or lung mass or pneumothora x is seen. The heart size, pulmonary vasculature, mediastinum and both vamshi are unremarkable. IMPRESSION: No acute radiographic abnormality is seen. Electronically signed by: Erik Samuel MD (10/30/2020 7:59 PM) [id number]
--- NOTE | 2020-10-30 21:32 | EKG ---
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
== END 2020-10-30 20:52 | disposition home or self-care (01) ==
LOC: ER 18:23
DX: R00.2 Palpitations (principal); R06.2 Wheezing; I25.10 Atherosclerotic heart disease of native coronary artery without angina pectoris; E78.00 Pure hypercholesterolemia, unspecified; I10 Essential (primary) hypertension; F17.210 Nicotine dependence, cigarettes, uncomplicated
CPT/HCPCS: 36415; 71045; 80053; 84484; 85025; 93005; 94640; 99285

== ENCOUNTER → 2021-03-08 | Outpatient (CLI) | payer SELFPAY ==
--- NOTE | 2021-03-08 13:13 | RAD ---
EXAM: XR CHEST 2V 03/08/2021 9:07 AM CLINICAL INDICATION: Cough, chest pain and shortness of breath. Vaccine Sunday COMPARISON: Chest radiograph 10/30/2020 TECHNIQUE: PA and lateral views of the chest FINDINGS: The heart is normal in size. There are coronary artery stents. The lungs are well-expanded . No consolidation, pleural effusion, or pneumothorax. No acute osseous abnormality. There are surgic al clips in the upper abdomen.. IMPRESSION: No acute cardiac pulmonary abnormality. Electronically signed by: Alison Limon MD (03/08/2021 1:11 PM) [id number]
== END ==
LOC: RAD 08:56
PROVIDERS: ATTEND Physician Assistant
DX: R05.9 Cough, unspecified (principal); R07.9 Chest pain, unspecified; R06.02 Shortness of breath; Z98.61 Coronary angioplasty status; Z98.890 Other specified postprocedural states
CPT/HCPCS: 71046